=== PATIENT | male | born 1960 | race Caucasian/White ===

== ENCOUNTER 2020-07-25 14:50 | Outpatient (CLI) | payer OTHER, SELFPAY ==
--- NOTE | ~2020-07-25 | CT_ITS ---
EXAMINATION: CT abdomen pelvis w con DATE: 07/25/2020 16:12 INDICATION: Abdominal and pelvic swelling. TECHNIQUE: Computed tomography (CT) of the abdomen and pelvis was performed with 100 mL Omnipaque 350 intravenous contrast. Automated exposure control and iterative reconstruction technique were employe d. The dose-length product was 314.37 mGy-cm. COMPARISON: None. FINDINGS: The visualized portions of the lung bases are clear without pneumonia or pleural effusion. The heart size is normal. No pericardial effusion. The liver, spleen, pancreas, and adrenal glands ar e normal. There are cysts in right kidney measuring up to 7 mm. There is moderate atrophy of left kid parviz. There is severe bilateral hydronephrosis and hydroureter. There are no pathologically enlarged l ymph nodes. There is no free intraperitoneal fluid. There are chronic bilateral L5 pars defects. Ther e is 4 mm anterolisthesis of L5 on S1. There is moderate lumbar lower lumbar spondylosis. IMPRESSION: 1. Markedly distended bladder with severe bilateral hydronephrosis and hydroureter. 2. Moderate atrophy of left kidney. Reviewed, dictated and finalized at location A. MATCHER IMPRESSION: 1. Markedly distended bladder with severe bilateral hydronephrosis and hydroure ter. 2. Moderate atrophy of left kidney.
[2020-07-25 15:27] LABS: Basophils Absolute Auto 0.1 K/mm3 (0.0-0.1); Basophils Percent Auto 0.7 % (0.2-1.2); Eosinophils Absolute Auto 0.1 K/mm3 (0-0.3); Eosinophils Percent Auto 0.7 % (0-4.4); Hematocrit 45.3 % (42.0-52.0); Hemoglobin 15.4 g/dL (14.0-18.0); Immature Granulocyte Absolute 0.03 K/mm3 (0.00-0.031); Immature Granulocyte Percent A 0.3 % (0-0.5); Lymphocytes Absolute Auto 1.69 K/mm3 (0.9-3.2); Lymphocytes Percent Auto 16.6 % (18.3-44.2); Mean Corpuscular Hemoglobin 30.2 pg (26-34); Mean Corpuscular Volume 88.8 fl (80-100); Mean Platelet Volume 8.9 fl (7.4-10.4); Monocytes Absolute Auto 0.7 K/mm3 (0.1-0.6); Monocytes Percent Auto 7.1 % (2.6-8.5); Neutrophils Absolute Auto 7.6 K/mm3 (1.3-6.7); Neutrophils Percent Auto 74.6 % (45.5-73.1); Platelet Count Result 317 k/mm3 (150-375); Red Cell Distribution Width 12.1 % (11.5-14.5); White Blood Count 10.2 K/mm3 (4.5-10.0)
[2020-07-25 15:39] LABS: Alanine Aminotransferase 23 U/L (4-50); Albumin Level 4.7 g/dL (3.5-5.1); Alkaline Phosphatase 77 U/L (38-126); Anion Gap 6 mmol/L (8-16); Aspartate Amino Transferase 34 U/L (17-59); Bilirubin,Total 0.8 mg/dL (0.2-1.3); Blood Urea Nitrogen 23 mg/dL (9-20); Calcium 9.5 mg/dL (8.4-10.2); Carbon Dioxide 30 mmol/L (22-30); Chloride 102 mmol/L (98-107); Cholesterol 160 mg/dL (0-200); Estimated Glomerular Filt Rate 41; Glucose 95 mg/dL (75-110); HDL Direct 59 mg/dL; Potassium 4.5 mmol/L (3.4-5.0); Sodium 138 mmol/L (137-145); Triglycerides 81 mg/dL (<150)
[2020-07-25 15:50] LABS: LDL Cholesterol Direct 76 mg/dL
[2020-07-25 15:59] LABS: Hemoglobin A1C 5.1 % (<5.7)
[2020-07-25 16:10] LABS: Prostate Specific Antigen 0.7 ng/mL (< OR = 4.0)
[2020-07-25 17:16] LABS: Free T4 Free Thyroxine 1.01 ng/mL (0.78-2.19)
[2020-07-28 11:26] LABS: Vitamin D 1,25 (OH)2 Total 24 pg/mL (18-72); Vitamin D2 1,25 (OH)2 <8 pg/mL; Vitamin D3 1,25 (OH)2 24 pg/mL
[2020-07-28 12:48] LABS: Homocysteine 23.4 umol/L (<11.4)
== END 2020-07-25 14:51 | disposition home or self-care (01) ==
PROVIDERS: PCP Internal Medicine; Visit Provider Internal Medicine
DX: R19.00 Intra-abdominal and pelvic swelling, mass and lump, unspecified site (principal); E55.9 Vitamin D deficiency, unspecified; Z76.89 Persons encountering health services in other specified circumstances; R79.89 Other specified abnormal findings of blood chemistry; Z12.5 Encounter for screening for malignant neoplasm of prostate
CPT/HCPCS: 36415; 74177; 80053; 80061; 82652; 83036; 83090; 84153; 84439; 84443; 85025; G0103; Q9967

== ENCOUNTER 2020-08-03 16:16 | Outpatient (CLI) | payer OTHER, SELFPAY ==
[2020-08-08 04:05] LABS: Albumin 4.1 g/dL (3.8-4.8); Alpha 1 Globulin 0.2 g/dL (0.2-0.3); Alpha 2 Globulin 0.6 g/dL (0.5-0.9); Beta 1 Globulin 0.4 g/dL (0.4-0.6); Gamma Globulin 1.5 g/dL (0.8-1.7); Protein, Total 7.2 g/dL (6.1-8.1)
== END 2020-08-03 16:17 | disposition home or self-care (01) ==
LOC: ANHLAB 16:18
PROVIDERS: PCP Internal Medicine; Visit Provider Internal Medicine
DX: R77.8 Other specified abnormalities of plasma proteins (principal)
CPT/HCPCS: 36415; 84155; 84165

== ENCOUNTER 2020-08-06 07:48 | Outpatient (NON) | payer OTHER, SELFPAY ==
[2020-08-10 16:12] LABS: Creatinine, 24 Hr Urine 1.86 g/24 h (0.50-2.15); Total Protein/Creatinine Ratio 526 mg/g creat (<115)
== END 2020-08-06 07:49 ==
PROVIDERS: PCP Internal Medicine; Visit Provider Internal Medicine
DX: R77.8 Other specified abnormalities of plasma proteins (principal)
CPT/HCPCS: 81050; 82570; 84156; 84166

== ENCOUNTER 2020-08-06 14:17 | Outpatient (CLI) | payer OTHER, SELFPAY ==
--- NOTE | ~2020-08-06 | MR_ITS ---
EXAMINATION: MR lumbar spine wo [facility] EXAM DATE: 08/06/2020 15:15 INDICATION: N31.9 - Neuromuscular dysfunction of bladder, unspecified . TECHNIQUE: Multi-sequential, multiplanar MR images of the lumbar spine were obtained without contrast . Sagittal T1, T2, T2 fat saturation images. Axial T2 weighted images. There is no prior study for comparison. FINDINGS: There is mild lumbar levoscoliosis. Mild to moderate disc disease L5-S1 with 4 mm anterolis thesis. Mild disc disease at the other lumbar levels. The vertebral bodies are otherwise aligned. The conus medullaris terminates at the T12/L1 level and has normal signal intensity and morphology. Par aspinal soft tissue is unremarkable. Level by level evaluation: T12-L1: Disc does not extend beyond the endplate margin. Facet arthropathy: None. Neural foraminal stenosis: No stenosis. Central canal stenosis: No stenosis. L1-L2: There is mild disc bulge, right central protrusion with annular fissure. Facet arthropathy: Mild. Neural foraminal stenosis: No stenosis. Central canal stenosis: Mild. L2-L3: There is a mild to moderate diffuse disc bulge. Facet arthropathy: Mild to moderate. Neural foraminal stenosis: Mild left. Central canal stenosis: Mild. L3-L4: There is a moderate diffuse disc bulge. Facet arthropathy: Moderate. Ligamentum flavum enlargement Neural foraminal stenosis: Mild to moderate bilateral. Central canal stenosis: Mild to moderate. L4-L5: There is a moderate diffuse disc bulge. Facet arthropathy: Moderate. Neural foraminal stenosis: Moderate left, mild to moderate right. Central canal stenosis: Mild to moderate. L5-S1: There is a moderate diffuse disc bulge. Facet arthropathy: Moderate bilateral. Neural foraminal stenosis: Moderate bilateral. Central canal stenosis: Mild. IMPRESSION: 1. L5-S1 grade 1 anterolisthesis, moderate bilateral neural foraminal stenosis. 2. Less spondylosis at other levels. 3. Mild lumbar levoscoliosis. Reviewed, dictated and finalized at location G. GRAPH EXAMINER IMPRESSION: 1. L5-S1 grade 1 anterolisthesis, moderate bilateral neural foraminal stenosis . 2. Less spondylosis at other levels. 3. Mild lumbar levoscoliosis.
== END 2020-08-06 14:18 | disposition home or self-care (01) ==
PROVIDERS: PCP Internal Medicine; Visit Provider Internal Medicine
DX: N31.9 Neuromuscular dysfunction of bladder, unspecified (principal)
CPT/HCPCS: 72148; 81050; 82570; 84156; 84166

== ENCOUNTER 2020-10-13 11:39 | Outpatient (CLI) | payer OTHER, SELFPAY ==
[2020-10-13 12:13] LABS: Anion Gap 5 mmol/L (8-16); Blood Urea Nitrogen 25 mg/dL (9-20); Calcium 8.9 mg/dL (8.4-10.2); Carbon Dioxide 31 mmol/L (22-30); Chloride 102 mmol/L (98-107); Estimated Glomerular Filt Rate 52; Glucose 88 mg/dL (75-110); Potassium 4.4 mmol/L (3.4-5.0); Sodium 138 mmol/L (137-145)
== END 2020-10-13 11:40 | disposition home or self-care (01) ==
PROVIDERS: PCP Internal Medicine; Visit Provider Internal Medicine
DX: Z79.899 Other long term (current) drug therapy (principal)
CPT/HCPCS: 36415; 80048

== ENCOUNTER 2020-12-04 16:55 | Outpatient (CLI) | payer OTHER, SELFPAY ==
[2020-12-04 17:19] LABS: Basophils Absolute Auto 0.1 K/mm3 (0.0-0.1); Basophils Percent Auto 0.7 % (0.2-1.2); Eosinophils Absolute Auto 0.2 K/mm3 (0-0.3); Eosinophils Percent Auto 1.3 % (0-4.4); Hematocrit 50.6 % (42.0-52.0); Hemoglobin 16.6 g/dL (14.0-18.0); Immature Granulocyte Absolute 0.04 K/mm3 (0.00-0.031); Immature Granulocyte Percent A 0.3 % (0-0.5); Lymphocytes Absolute Auto 2.45 K/mm3 (0.9-3.2); Lymphocytes Percent Auto 20.5 % (18.3-44.2); Mean Corpuscular HGB Conc 32.8 g/dl (32-36); Mean Corpuscular Hemoglobin 29.6 pg (26-34); Mean Corpuscular Volume 90.4 fl (80-100); Mean Platelet Volume 8.4 fl (7.4-10.4); Monocytes Absolute Auto 0.9 K/mm3 (0.1-0.6); Monocytes Percent Auto 7.2 % (2.6-8.5); Neutrophils Absolute Auto 8.4 K/mm3 (1.3-6.7); Platelet Count Result 321 k/mm3 (150-375); Red Cell Distribution Width 12.5 % (11.5-14.5)
[2020-12-04 17:36] LABS: Hemoglobin A1C 5.4 % (<5.7)
[2020-12-04 17:43] LABS: Alanine Aminotransferase 21 U/L (4-50); Albumin Level 4.6 g/dL (3.5-5.1); Alkaline Phosphatase 77 U/L (38-126); Anion Gap 7 mmol/L (8-16); Aspartate Amino Transferase 39 U/L (17-59); Bilirubin,Total 0.6 mg/dL (0.2-1.3); Blood Urea Nitrogen 24 mg/dL (9-20); Calcium 9.3 mg/dL (8.4-10.2); Carbon Dioxide 29 mmol/L (22-30); Chloride 102 mmol/L (98-107); Cholesterol 209 mg/dL (0-200); Estimated Glomerular Filt Rate 52; Glucose 89 mg/dL (75-110); HDL Direct 65 mg/dL; Potassium 4.3 mmol/L (3.4-5.0); Sodium 138 mmol/L (137-145); Triglycerides 139 mg/dL (<150)
[2020-12-04 17:54] LABS: LDL Cholesterol Direct 95 mg/dL
[2020-12-09 05:40] LABS: Albumin 4.3 g/dL (3.8-4.8); Alpha 1 Globulin 0.3 g/dL (0.2-0.3); Alpha 2 Globulin 0.7 g/dL (0.5-0.9); Beta 1 Globulin 0.4 g/dL (0.4-0.6); Gamma Globulin 1.6 g/dL (0.8-1.7); Protein, Total 7.7 g/dL (6.1-8.1)
== END 2020-12-04 16:56 | disposition home or self-care (01) ==
PROVIDERS: PCP Internal Medicine; Visit Provider Internal Medicine
DX: E78.5 Hyperlipidemia, unspecified (principal); R77.8 Other specified abnormalities of plasma proteins; R80.9 Proteinuria, unspecified; Z79.899 Other long term (current) drug therapy; Z83.3 Family history of diabetes mellitus
CPT/HCPCS: 36415; 80048; 80061; 80076; 83036; 84155; 84165; 85025

== ENCOUNTER 2020-12-05 17:12 | Outpatient (CLI) | payer OTHER, SELFPAY ==
[2020-12-09 03:45] LABS: Creatinine, Random Urine 113 mg/dL (20-320); Total Protein/Creatinine Ratio 106 mg/g creat (22-128)
== END 2020-12-05 17:13 | disposition home or self-care (01) ==
PROVIDERS: PCP Internal Medicine; Visit Provider Internal Medicine
DX: R80.9 Proteinuria, unspecified (principal); Z79.899 Other long term (current) drug therapy; R77.8 Other specified abnormalities of plasma proteins; N31.9 Neuromuscular dysfunction of bladder, unspecified
CPT/HCPCS: 82570; 84156; 84166

== ENCOUNTER 2021-03-08 06:55 | Outpatient (CLI) | payer OTHER, SELFPAY ==
[2021-03-08 08:06] LABS: Alanine Aminotransferase 23 U/L (4-50); Albumin Level 4.6 g/dL (3.5-5.1); Alkaline Phosphatase 85 U/L (38-126); Aspartate Amino Transferase 35 U/L (17-59); Cholesterol 198 mg/dL (0-200); HDL Direct 67 mg/dL; Triglycerides 70 mg/dL (<150)
[2021-03-08 08:17] LABS: LDL Cholesterol Direct 91 mg/dL
[2021-03-12 22:10] LABS: Apolipoprotein B 87 mg/dL (<90)
== END 2021-03-08 06:56 | disposition home or self-care (01) ==
LOC: ANHLAB 06:57
PROVIDERS: PCP Internal Medicine; Visit Provider Internal Medicine
DX: E78.5 Hyperlipidemia, unspecified (principal); Z79.899 Other long term (current) drug therapy; R89.9 Unspecified abnormal finding in specimens from other organs, systems and tissues; R80.9 Proteinuria, unspecified
CPT/HCPCS: 36415; 80061; 80076; 82172; 83876; 86021

== ENCOUNTER 2021-10-04 06:40 | Outpatient (CLI) | payer OTHER, SELFPAY ==
[2021-10-04 07:16] LABS: Alanine Aminotransferase 22 U/L (4-50); Albumin Level 4.6 g/dL (3.5-5.1); Alkaline Phosphatase 71 U/L (38-126); Anion Gap 6 mmol/L (8-16); Aspartate Amino Transferase 33 U/L (17-59); Bilirubin,Total 0.7 mg/dL (0.2-1.3); Blood Urea Nitrogen 22 mg/dL (9-20); Calcium 8.8 mg/dL (8.4-10.2); Carbon Dioxide 28 mmol/L (22-30); Chloride 101 mmol/L (98-107); Cholesterol 193 mg/dL (0-200); Estimated Glomerular Filt Rate 47; Glucose 96 mg/dL (65-110); HDL Direct 54 mg/dL; Potassium 4.3 mmol/L (3.4-5.0); Sodium 135 mmol/L (137-145); Triglycerides 66 mg/dL (<150)
[2021-10-04 07:28] LABS: LDL Cholesterol Direct 99 mg/dL
[2021-10-04 07:50] LABS: Prostate Specific Antigen 1.3 ng/mL (< OR = 4.0)
[2021-10-04 08:04] LABS: Vitamin D 25 Hydroxy 59.4 ng/mL
== END 2021-10-04 06:41 | disposition home or self-care (01) ==
LOC: ANHLAB 06:42
PROVIDERS: PCP Internal Medicine; Visit Provider Internal Medicine
DX: Z12.5 Encounter for screening for malignant neoplasm of prostate (principal); E55.9 Vitamin D deficiency, unspecified; Z51.81 Encounter for therapeutic drug level monitoring; Z79.899 Other long term (current) drug therapy; N31.9 Neuromuscular dysfunction of bladder, unspecified; E78.2 Mixed hyperlipidemia
CPT/HCPCS: 36415; 80053; 80061; 82306; 84153; G0103

== ENCOUNTER 2022-06-14 06:51 | Outpatient (CLI) | payer OTHER, SELFPAY ==
[2022-06-14 07:17] LABS: Alanine Aminotransferase 36 U/L (6-50); Albumin Level 4.5 g/dL (3.5-5.1); Alkaline Phosphatase 80 U/L (38-126); Anion Gap 7 mmol/L (8-16); Aspartate Amino Transferase 45 U/L (17-59); Bilirubin,Total 1.3 mg/dL (0.2-1.3); Blood Urea Nitrogen 22 mg/dL (9-20); Calcium 8.8 mg/dL (8.4-10.2); Carbon Dioxide 27 mmol/L (22-30); Chloride 103 mmol/L (98-107); Cholesterol 211 mg/dL (0-200); Estimated Glomerular Filt Rate 56; Glucose 86 mg/dL (65-110); HDL Direct 56 mg/dL; Potassium 3.9 mmol/L (3.4-5.0); Sodium 137 mmol/L (137-145); Triglycerides 85 mg/dL (<150)
[2022-06-14 07:28] LABS: LDL Cholesterol Direct 103 mg/dL
[2022-06-14 07:44] LABS: Free T4 Free Thyroxine 0.84 ng/mL (0.78-2.19)
[2022-06-14 07:46] LABS: Prostate Specific Antigen 1.1 ng/mL (< OR = 4.0)
== END 2022-06-14 06:52 | disposition home or self-care (01) ==
LOC: ANHLAB 06:54
PROVIDERS: PCP Internal Medicine; Visit Provider Internal Medicine
DX: R97.20 Elevated prostate specific antigen [PSA] (principal); E78.2 Mixed hyperlipidemia; Z13.29 Encounter for screening for other suspected endocrine disorder; Z79.899 Other long term (current) drug therapy
CPT/HCPCS: 36415; 80053; 80061; 84153; 84439; 84443

== ENCOUNTER 2023-01-09 08:55 | Outpatient (CLI) | payer OTHER, SELFPAY ==
[2023-01-09 09:15] LABS: Basophils Absolute Auto 0.1 K/mm3 (0.0-0.1); Basophils Percent Auto 0.6 % (0.2-1.2); Eosinophils Absolute Auto 0.1 K/mm3 (0-0.3); Hematocrit 53.1 % (42.0-52.0); Hemoglobin 17.9 g/dL (14.0-18.0); Immature Granulocyte Absolute 0.02 K/mm3 (0.00-0.031); Immature Granulocyte Percent A 0.2 % (0-0.5); Lymphocytes Absolute Auto 2.05 K/mm3 (0.9-3.2); Lymphocytes Percent Auto 21.4 % (18.3-44.2); Mean Corpuscular HGB Conc 33.7 g/dl (32-36); Mean Corpuscular Hemoglobin 30.5 pg (26-34); Mean Corpuscular Volume 90.6 fl (80-100); Mean Platelet Volume 8.6 fl (7.4-10.4); Monocytes Absolute Auto 0.7 K/mm3 (0.1-0.6); Monocytes Percent Auto 7.7 % (2.6-8.5); Neutrophils Absolute Auto 6.6 K/mm3 (1.3-6.7); Neutrophils Percent Auto 69.1 % (45.5-73.1); Platelet Count Result 320 k/mm3 (150-375); Red Blood Count 5.86 M/mm3 (4.6-6.20); Red Cell Distribution Width 12.6 % (11.5-14.5); White Blood Count 9.6 K/mm3 (4.5-10.0)
[2023-01-09 09:27] LABS: Alanine Aminotransferase 27 U/L (6-50); Albumin Level 4.7 g/dL (3.5-5.1); Alkaline Phosphatase 81 U/L (38-126); Anion Gap 9 mmol/L (8-16); Aspartate Amino Transferase 33 U/L (17-59); Bilirubin,Total 0.7 mg/dL (0.2-1.3); Blood Urea Nitrogen 22 mg/dL (9-20); Calcium 9.4 mg/dL (8.4-10.2); Carbon Dioxide 30 mmol/L (22-30); Chloride 101 mmol/L (98-107); Cholesterol 218 mg/dL (0-200); Estimated Glomerular Filt Rate 51; Glucose 73 mg/dL (65-110); HDL Direct 62 mg/dL; Potassium 4.6 mmol/L (3.4-5.0); Sodium 140 mmol/L (137-145); Triglycerides 114 mg/dL (<150)
[2023-01-09 09:35] LABS: Hemoglobin A1C 5.4 % (<5.7)
[2023-01-09 09:38] LABS: LDL Cholesterol Direct 117 mg/dL
[2023-01-09 10:01] LABS: Free T4 Free Thyroxine 0.99 ng/mL (0.78-2.19); Vitamin D 25 Hydroxy 75.7 ng/mL
[2023-01-09 10:33] LABS: Folic Acid > 20.0 ng/mL (2.76->20)
== END 2023-01-09 08:56 | disposition home or self-care (01) ==
LOC: ANHLAB 08:58
PROVIDERS: PCP Internal Medicine; Visit Provider Internal Medicine
DX: E55.9 Vitamin D deficiency, unspecified (principal); R94.6 Abnormal results of thyroid function studies; E78.5 Hyperlipidemia, unspecified; Z01.89 Encounter for other specified special examinations; Z79.899 Other long term (current) drug therapy; Z13.1 Encounter for screening for diabetes mellitus; E53.8 Deficiency of other specified B group vitamins
CPT/HCPCS: 36415; 80053; 80061; 82306; 82607; 82746; 83036; 84439; 84443; 85025

== ENCOUNTER 2023-07-25 06:50 | Outpatient (CLI) | payer OTHER, SELFPAY ==
[2023-07-25 07:56] LABS: Free T4 Free Thyroxine 0.95 ng/mL (0.78-2.19)
[2023-07-25 08:00] LABS: Anion Gap 11 mmol/L (8-16); Blood Urea Nitrogen 26 mg/dL (9-20); Calcium 9.3 mg/dL (8.4-10.2); Carbon Dioxide 25 mmol/L (22-30); Chloride 100 mmol/L (98-107); Cholesterol 172 mg/dL (0-200); Estimated Glomerular Filt Rate 47; Glucose 100 mg/dL (65-110); HDL Direct 52 mg/dL; LDL Cholesterol Direct 93 mg/dL; Potassium 4.2 mmol/L (3.4-5.0); Prostate Specific Antigen 1.2 ng/mL (< OR = 4.0); Sodium 136 mmol/L (137-145); Triglycerides 70 mg/dL (<150)
== END 2023-07-25 06:51 | disposition home or self-care (01) ==
LOC: ANHLAB 06:52
PROVIDERS: PCP Internal Medicine; Visit Provider Internal Medicine
DX: E78.2 Mixed hyperlipidemia (principal); N18.1 Chronic kidney disease, stage 1; Z79.899 Other long term (current) drug therapy; Z12.5 Encounter for screening for malignant neoplasm of prostate
CPT/HCPCS: 36415; 80048; 80061; 84153; 84439; 84443; G0103

== ENCOUNTER 2023-08-05 16:07 | Outpatient (CLI) | payer OTHER, SELFPAY ==
[2023-08-05 17:00] LABS: Anion Gap 7 mmol/L (8-16); Blood Urea Nitrogen 28 mg/dL (9-20); Calcium 9.5 mg/dL (8.4-10.2); Carbon Dioxide 27 mmol/L (22-30); Chloride 102 mmol/L (98-107); Estimated Glomerular Filt Rate 56; Glucose 90 mg/dL (65-110); Potassium 4.1 mmol/L (3.4-5.0); Sodium 136 mmol/L (137-145)
== END 2023-08-05 16:08 | disposition home or self-care (01) ==
LOC: ANHLAB 16:09
PROVIDERS: PCP Internal Medicine; Visit Provider Internal Medicine
DX: N18.1 Chronic kidney disease, stage 1 (principal)
CPT/HCPCS: 36415; 80048

== ENCOUNTER 2024-02-04 07:43 | Outpatient (CLI) | payer OTHER, SELFPAY ==
--- NOTE | ~2024-02-04 | US_ITS ---
US renal BI Ordering provider: Nael Lowry MD History: . N18.1 - Chronic kidney disease, stage 1 . Comparison: None. Technique: Ultrasound bilateral kidneys. Findings: RIGHT KIDNEY: Measures 11x 4.3x 6.2 cm in length which is normal in size. Cyst is seen in the superio r pole measuring 1.3 x 0.9 x 1.1 cm. No renal mass or visualized echogenic stones. Otherwise, normal echotexture and contour. No hydronephrosis. Normal renal cortical thickness. LEFT KIDNEY: Measures 8.8x 4.6x 4.1 cm in length which is normal in size. No renal cysts. No renal ma ss or visualized echogenic stones. Otherwise, normal echotexture and contour. No hydronephrosis. Norm al renal cortical thickness. BLADDER: Small echogenic area seen in the right posterior-inferior wall which may be focal wall thick ening. Noncalcified stone is less likely. Debris also less likely. Cystoscopy is advised. IMPRESSION: Slightly smaller right kidney compared to the left. Cyst in the right kidney upper pole. Small echogenic area most likely in the urinary bladder wall. Cystoscopy is advised. Reviewed, dictated and finalized at location A. IMPRESSION: Slightly smaller right kidney compared to the left. Cyst in the right kidney upper pole. Small echogenic area most likely in the urinary bladder wall. Cystoscopy is adv ised.
== END 2024-02-04 07:44 ==
PROVIDERS: PCP Internal Medicine; Visit Provider Internal Medicine
DX: N18.1 Chronic kidney disease, stage 1 (principal); N28.1 Cyst of kidney, acquired
CPT/HCPCS: 76775

== ENCOUNTER 2024-08-01 06:50 | Outpatient (CLI) | payer MEDICARE, OTHER, SELFPAY ==
--- OUTSIDE RECORDS SUMMARY | 2024-08-01 06:57 | XMS_ITS | Clinical Summary ---
Author Organization [facility] Address [address] [place] [id number] Care Team Providers Care Stitching Machine Feeder Or Offbearer Name Role Phone Nael Lowry MD Primary Care Provider [phone] Social History Tobacco Use Types Packs/Day Years Used Date Smoking Tobacco: Never Assessed Sex and Gender Information Value Date Recorded Sex Assigned at Not on file Legal Sex Male 11:23 AM CDT Gender Identity Not on file Sexual Orientation Not on file Plan of Treatment Health Maintenance Due Date Last Done Comments Colorectal Cancer Screening Colonoscopy (10 Years) 1960 Hepatitis C 1977 DTaP, Tdap and Td Vaccines ( 1 - Tdap) 1978 Zoster Vaccines (1 of 2) 2009 COVID-19 Vaccine ( - 2023-2 5 season) 2024 08/21/2020, 07/24/2020 Influenza Adult (#1) 2024 Pneumococcal Vaccine: 65+ Years (1 of 1 - PCV) 2024 RSV Immunization or 60+ Years (1 - 1-dose 75+ series) 2034 Meningococcal B Vaccine Aged Out No l onger eligible based on patient's age to complete this topic Meningococcal Vaccine Aged Out No tray deb eligible based on patient's age to complete this topic Pneumococcal Vaccine: Pediatrics (0 to 5 Years) and At-Risk Patients (6 to 64 Years) Aged Out No longer eligible b ased on patient's age to complete this topic RSV Immunizations Under 20 Months Aged Out No longer eligible b ased on patient's age to complete this topic Insurance [facility] Care Teams Stitching Machine Feeder Or Offbearer Relationship Specialty Start Date End Date Nael Lowry MD [address] [place] [address] PCP - General INTERNAL MEDICINE 12/05/20
[2024-08-01 07:56] LABS: Basophils Absolute Auto 0.1 K/mm3 (0.0-0.1); Basophils Percent Auto 0.8 % (0.2-1.2); Eosinophils Absolute Auto 0.2 K/mm3 (0-0.3); Eosinophils Percent Auto 3.2 % (0-4.4); Hematocrit 52.7 % (42.0-52.0); Hemoglobin 17.7 g/dL (14.0-18.0); Immature Granulocyte Absolute 0.02 K/mm3 (0.00-0.031); Immature Granulocyte Percent A 0.3 % (0-0.5); Lymphocytes Absolute Auto 2.71 K/mm3 (0.9-3.2); Lymphocytes Percent Auto 35.6 % (18.3-44.2); Mean Corpuscular HGB Conc 33.6 g/dl (32-36); Mean Corpuscular Hemoglobin 29.7 pg (26-34); Mean Corpuscular Volume 88.4 fl (80-100); Mean Platelet Volume 9.3 fl (7.4-10.4); Monocytes Absolute Auto 0.6 K/mm3 (0.1-0.6); Monocytes Percent Auto 8.1 % (2.6-8.5); Platelet Count Result 316 k/mm3 (150-375); Red Blood Count 5.96 M/mm3 (4.6-6.20); Red Cell Distribution Width 12.8 % (11.5-14.5); White Blood Count 7.6 K/mm3 (4.5-10.0)
[2024-08-01 08:22] LABS: Alanine Aminotransferase 29 U/L (6-50); Albumin Level 4.4 g/dL (3.5-5.1); Alkaline Phosphatase 80 U/L (38-126); Anion Gap 9 mmol/L (4-12); Aspartate Amino Transferase 36 U/L (17-59); Bilirubin,Total 0.7 mg/dL (0.2-1.3); Blood Urea Nitrogen 31 mg/dL (9-20); Calcium 9.4 mg/dL (8.4-10.2); Carbon Dioxide 25 mmol/L (22-30); Chloride 103 mmol/L (98-107); Cholesterol 211 mg/dL (0-200); Estimated Glomerular Filt Rate 56; Glucose 93 mg/dL (65-110); HDL Direct 61 mg/dL; Potassium 4.5 mmol/L (3.4-5.0); Sodium 137 mmol/L (137-145); Triglycerides 71 mg/dL (<150)
[2024-08-01 08:32] LABS: LDL Cholesterol Direct 115 mg/dL
[2024-08-01 08:50] LABS: Prostate Specific Antigen 1.2 ng/mL (< OR = 4.0)
[2024-08-01 09:15] LABS: Hemoglobin A1C 5.6 % (<5.7)
[2024-08-01 09:24] LABS: Free T4 Free Thyroxine 0.82 ng/dL (0.78-2.19); Vitamin D 25 Hydroxy 63.3 ng/mL
[2024-08-01 09:27] LABS: Folic Acid > 20.0 ng/mL (2.76->20)
[2024-08-01 13:29] LABS: Add Urine Microscopic? YES; Appearance Urine Clear (Clear); Bacteria Urine Rare /hpf; Bilirubin Urine Negative (Negative); Blood Urine Trace (Negative); Color Urine Yellow (Yellow); Glucose Urine UA Negative (Negative); Ketones Urine Negative (Negative); Leukocyte Esterase Ur Trace LEU/UL (Negative); Nitrate Urine Negative (Negative); Non Pathogenic Casts 0-2; Protein Urine Negative (Negative); RBC Urine 0-2 /hpf (0-2); Specific Grav Ur 1.007 (1.001-1.035); Squamous Epithelial Cell Urine None Seen /hpf (Few); Urobilinogen Urine 0.2 mg/dL (<2.0); WBC Urine 0-5 /hpf (0-3)
== END 2024-08-01 06:51 | disposition home or self-care (01) ==
PROVIDERS: PCP Internal Medicine; Visit Provider Internal Medicine
DX: Z12.5 Encounter for screening for malignant neoplasm of prostate (principal); E78.5 Hyperlipidemia, unspecified; N18.1 Chronic kidney disease, stage 1; R77.8 Other specified abnormalities of plasma proteins; E55.9 Vitamin D deficiency, unspecified; R80.9 Proteinuria, unspecified; E78.2 Mixed hyperlipidemia; R53.83 Other fatigue; Z79.899 Other long term (current) drug therapy; Z83.3 Family history of diabetes mellitus
CPT/HCPCS: 36415; 80053; 80061; 81001; 82306; 82607; 82746; 83036; 84153; 84439; 84443; 85025; G0103